=== PATIENT | male | born 1995 | race Caucasian/White ===

== ENCOUNTER 2023-05-28 14:02 | Emergency (ER) | payer SELFPAY ==
[2023-05-28 14:06] VITALS: BP 149/80; PULSE 93; RESP 18; TEMP 36.6; O2SAT 96
--- NOTE | 2023-05-28 14:07 | ED.GENADULT ---
HPI - General Adult General Chief complaint: Eye Problems Stated complaint: R eye irritation Time Seen by Provider: 05/28/23 14:03 History of Present Illness HPI narrative: Naeem is a previously healthy 28M that was using a outer diameter grinder tool without eye protection 1.5 weeks ago and thinks a shard might have flown in his eye. Since that time he has had waxing and waning irritation in the right eye and itching. Today he had some thick, yellow sticky drainage and it was red so he came in. There is no pain with eye movement, vision changes, or fevers. Related Data Allergies Allergy/AdvReac Type Severity Reaction Status Date / Time No Known Allergies Allergy Verified 05/28/23 14:03 Review of Systems Review of Systems: All systems reviewed & are unremarkable except as noted in HPI and below Exam Const: General: cooperative, healthy appearing, comfortable, no acute distress, well developed, alert, awake and Physically active Orientation/consciousness: oriented to person, oriented to place and oriented to time HENMT: Head: normal to inspection, normocephalic and atraumatic Ears: hearing grossly normal bilaterally and external ears normal Face/Nose/Sinus: Normal external nose present Eyes: General: appearance normal, both eyes and all related structures Periorbital: periorbital findings normal Sclera: sclerae normal Pupils: Equal, round and reactive pupils present Other: Right eye had conjunctival injection and purulent drainage. 20/20 vision with both eyes and with right eye alone. No pain with EOMI. Neck: Neck: normal visual inspection Chest: Chest palpation & inspection: normal inspection of the chest Resp: Effort & Inspection: normal respiratory effort, able to speak in complete sentences and no respiratory distress Cardio: Jugular venous distension: no JVD Skin: General skin exam: normal color and no rashes or lesions noted Neuro: General: oriented to person, oriented to place and oriented to time Cranial nerves: Yes Equal, round and reactive pupils present Extrem: General: normal to inspection Course Course Emergency Course: Performed fluorescein eye exam which showed no deficits or foreign body. Given antibiotic eye drops in the ED. Given he was using a outer diameter grinder tool and initially improved I suspect he had a corneal abrasor that progressed to conjunctivitis. He was discharged with a script for antibiotic eye drops and instructed to call [facility] for f/u. Discharge Plan Discharge Clinical Impression: Conjunctivitis Patient Disposition: Home, Self-Care Condition: Stable Instructions: Conjunctivitis (ED) Prescriptions: New polymyxin B sulf-trimethoprim 10,000 unit- 1 mg/mL drops 1 drp RIGHT EYE Q3H 5 Days Qty: 10 0RF Rx Instructions: while awake; do not exceed 6 doses in 24 hours Follow-up/Referrals: UNKNOWN,DOCTOR [Primary Care Provider] -
[2023-05-28] MEDS: TETRACAINE HCL 0.5% OPHTH SOLN 4 ML BTL 1 DROP LEFT EYE (14:09)
[2023-05-28] MEDS: FLUORESCEIN SOD 1 MG/STRIP EACH EYE (14:09)
[2023-05-28] MEDS: POLYMYXIN/TRIMETHOPRIM OPHTH 10 ML DROPS 1 DROP RIGHT EYE (14:36)
== END 2023-05-28 14:44 | disposition home or self-care (01) ==
LOC: CHSED 14:40
PROVIDERS: Emergency Provider Family Medicine
DX: H10.9 Unspecified conjunctivitis (principal)
CPT/HCPCS: 99283; A9270

== ENCOUNTER 2023-06-26 03:04 | Emergency (ER) | payer OTHER, SELFPAY ==
--- NOTE | ~2023-06-26 | CT_ITS ---
Noncontrast CT scan of the cervical spine Technique: Multiple contiguous axial [address] images of the cervical spine were obtained and rec onstructed in 2D sagittal and coronal planes on the acquisition scanner. Dose reduction technique was used on this scan by utilizing automated exposure control, adjustment of the mA and/or kV according to patient size. The dose-length product (DLP) was 534.87 mGy-cm. Clinical History: Pain Findings: No fractures or dislocations. Unremarkable visualized bony structures. The intervertebral disc spaces are preserved. No prevertebral soft tissue swelling. Impression: No fracture or subluxation of the cervical spine. Reviewed, dictated and finalized at location . Impression: No fracture or subluxation of the cervical spine.
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
[2023-06-26 03:06] VITALS: BP 139/92; PULSE 100; RESP 18; TEMP 36.8; O2SAT 98
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
[2023-06-26] MEDS: MORPHINE SULFATE (*CRX) 4 MG/ML INJ IV PUSH (03:21)
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
[2023-06-26 04:03] LABS: Hematocrit 46.4 % (40.0-54.0); Mean Corpuscular HGB Conc 34.5 g/dL (32-36); Mean Corpuscular Hemoglobin 32.1 pg (27.0-31.0); Mean Platelet Volume 10.2 fl (8.7-11.0); Platelet Count Result 255 K/mm3 (150-420); Red Blood Count 4.99 M/mm3 (4.70-6.10); Red Cell Distribution Width 12.2 % (11.6-14.4); White Blood Count 7.6 K/mm3 (4.8-10.8)
[2023-06-26] MEDS: MORPHINE SULFATE (*CRX) 2 MG/ML INJ IV PUSH (04:05)
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
[2023-06-26 04:14] LABS: Band Neutrophils Percent 0 % (0-6); Basophils Absolute Manual 0.07 K/mm3 (0-0.1); Basophils Percent Manual 1 % (0-1); Eosinophils Percent Manual 0 % (1-6); Lymphocytes Absolute Manual 2.05 K/mm3 (1.1-4.5); Lymphocytes Percent Manual 27 % (18-44); Monocytes Absolute Manual 0.45 K/mm3 (0.1-0.90); Monocytes Percent Manual 6 % (3-9); Neutrophils Absolute Manual 5.01 K/mm3 (1.3-6.7); Neutrophils Percent Manual 66 % (46-73); Platelet Estimate Adequate (Adequate)
[2023-06-26 04:23] LABS: Alanine Aminotransferase 73 U/L (16-63); Albumin Level 3.6 g/dL (3.4-5.0); Alkaline Phosphatase 94 U/L (46-116); Anion Gap 9 mmol/L (4-12); Aspartate Amino Transferase 38 U/L (15-37); Bilirubin,Total 0.6 mg/dL (0.00-1.00); Blood Urea Nitrogen 13 mg/dL (7-18); Calcium 8.3 mg/dL (8.5-10.1); Carbon Dioxide 28 mmol/L (21-32); Chloride 98 mmol/L (98-108); Estimated CRCL calculation 80 ml/min; Estimated Glomerular Filt Rate > 60; Glucose 101 mg/dL (70-99); Lipase 22 U/L (16-77); Osmolality Calculated 280 mOsm/kg (285-295); Potassium 4.5 mmol/L (3.5-5.1); Sodium 135 mmol/L (136-145); Total Protein 7.1 g/dL (6.4-8.2)
[2023-06-26 04:24] LABS: Troponin I < 4.0 ng/L (0.00-60.4)
[2023-06-26 04:55] VITALS: BP 145/94; PULSE 93; RESP 21; O2SAT 100
[2023-06-26 05:25] LABS: Add Urine Microscopic? NO; Appearance Urine Clear (Clear); Bilirubin Urine Negative (Negative); Blood Urine Negative (Negative); Color Urine Yellow (Yellow); Glucose Urine UA Negative (Negative); Ketones Urine Negative (Negative); Leukocyte Esterase Ur Negative LEU/UL (Negative); Nitrate Urine Negative (Negative); Protein Urine Negative (Negative); Specific Grav Ur <= 1.005 (1.010-1.020); Urobilinogen Urine 0.2 mg/dL (0.2-1.0)
[2023-06-26 05:32] VITALS: BP 136/98; PULSE 85; RESP 20; TEMP 36.7; O2SAT 99
== END 2023-06-26 05:39 | disposition home or self-care (01) ==
PROVIDERS: Emergency Provider Family Medicine
DX: M54.2 Cervicalgia (principal); V49.9XXA Car occupant (driver) (passenger) injured in unspecified traffic accident, initial encounter; W22.11XA Striking against or struck by driver side automobile airbag, initial encounter; M79.652 Pain in left thigh; R10.9 Unspecified abdominal pain
CPT/HCPCS: 36415; 70450; 71260; 72125; 73700; 74177; 80053; 81003; 83690; 84484; 85025; 96374; 96376; 99284; J2270; Q9967

== ENCOUNTER 2024-02-19 16:24 | Emergency (ER) | payer SELFPAY ==
[2024-02-19 16:24] VITALS: BP 144/113; PULSE 106; RESP 18; TEMP 37.3; O2SAT 100
[2024-02-19] MEDS: DACRIOSE EYE IRRIGATION 118 ML BOTTLE 50 ML EACH EYE (16:36)
[2024-02-19] MEDS: TETRACAINE HCL 0.5% OPHTH SOLN 4 ML BTL 1 DROP EACH EYE (16:36)
[2024-02-19] MEDS: FLUORESCEIN SOD 1 MG/STRIP EACH EYE (16:36)
--- NOTE | 2024-02-19 17:08 | ED_ITS ---
HPI - Eye Problem General Chief complaint: Eye Problems Stated complaint: foreign body to eye Time Seen by Provider: 02/19/24 16:30 Source: patient Mode of arrival: ambulatory Limitations: no limitations History of Present Illness HPI Narrative: Patient is a 28-year-old male with a significant past medical history that presents today for an eye injury. Patient was sought ring and not using eye protection and a piece of metal went into his right eye. There is a small hole with a piece of metal stuck in his right eye. His pain is a 10 10. He said it is with her and what they say finally came into the emergency department. He tried to use lots of water and his home and it did not help. chief complaint: eye pain and eye injury Onset (ago): hour(s) Onset description: sudden Duration: constant Location: right eye Eye Symptoms: burning and pain Place: home Mechanism: direct trauma and occurred while hammering/grinding Severity: moderate Severity scale (1-10): 10 If Pain, Quality: sharp and burning Associated symptoms: none Treatments Prior to Arrival: irrigated eye Related Data Allergies Allergy/AdvReac Type Severity Reaction Status Date / Time No Known Allergies Allergy Verified 02/19/24 16:35 Review of Systems Review of Systems: All systems reviewed & are unremarkable except as noted in HPI and below Constitutional: Constitutional: Reports as per HPI Eyes: Eyes: Reports as per HPI Comments: eye injury, foriegn body in eye ENT: Reports system reviewed and no additional complaints, except as documented Cardiovascular: Cardiovascular: Reports no additional cardiovascular complaints Respiratory: Respiratory: Reports no additional respiratory complaints Gastrointestinal: Gastrointestinal: Reports no additional gastrointestinal complaints Genitourinary: Genitourinary: Reports no additional male genitourinary complaints Musculoskeletal: Musculoskeletal: Reports no additional musculoskeletal complaints Integumentary/Breasts: Skin/Breast: Reports system reviewed and no additional complaints, except as docu Neurologic: Reports system reviewed and no additional complaints, except as documented Psychiatric: Psychiatric: Reports no additional psychiatric complaints Endocrine: Endocrine: Reports no additional endocrine complaints Hematologic/Lymphatic: Hematologic/Lymphatic: Reports no additional hematologic/lymphatic complaints Allergic/Immunologic: Allergic/Immunologic: Reports no additional allergic/immunologic complaints Exam Const: General: healthy appearing Nutritional Appearance: well nourished Orientation/consciousness: patient oriented x3 Limitations: no limitations HENMT: Head: normal to inspection Ears: external ears normal Face/Nose/Sinus: Normal external nose present Face and sinus: normal facial exam Mouth: Yes Normal oral and palatal mucosa present Teeth and gingiva: dentition normal Throat: posterior oropharynx normal Eyes: Pupils: Equal, round and reactive pupils present EOM: EOMs intact bilaterally Direct Ophthalmoscopy: no photophobia Other: Small .1mm hole in sclera with foriegn object in eye Neck: Neck: normal visual inspection Chest: Chest palpation & inspection: normal inspection of the chest Resp: Effort & Inspection: normal respiratory effort Auscultation: clear to auscultation bilaterally Cardio: Rate: regular rate Rhythm: regular rhythm GI: Auscultation: normal bowel sounds Back/Spine/Pelvis: Back: no CVA tenderness Skin: General skin exam: normal color Rashes: no rashes Wounds: no wounds Neuro: General: patient oriented x3 Cranial nerves: Yes Nystagmus not present Speech: normal speech Gait exam (Neuro): Normal gait present Extrem: General: normal to inspection Psych: Mental Status: mental status grossly normal Affect: normal affect Attitude: cooperative Course Vital Signs Vital signs: Vital Signs Temperature 99.2 F 02/19/24 16:24 Pulse Rate 106 H 02/19/24 16:24 Respiratory Rate 18 02/19/24 16:24 Blood Pressure 144/113 H 02/19/24 16:24 Pulse Oximetry 100 02/19/24 16:24 Oxygen Delivery Room Air 02/19/24 16:24 Temperature 99.2 F 02/19/24 16:24 Pulse Rate 106 H 02/19/24 16:24 Respiratory Rate 18 02/19/24 16:24 Blood Pressure 144/113 H 02/19/24 16:24 Pulse Oximetry 100 02/19/24 16:24 Oxygen Delivery Room Air 02/19/24 16:25 MDM - Eye Problem MDM Narrative Medical decision making narrative: Patient was grinding on metal without eye protection and is more so about when to his right eye. There is very small less than 0.1 mm piece of the Metal in his right eye. clip is seen in his thigh after done with the hat with tetracaine and he has black light lab and tools to remove the Foreign object for nausea was successfully removed he has just a very small hole in the score of the eye. This should not affect his vision and his vision for he said he can see good and has no blurriness and his eye feels much better. Differential Diagnosis Differential diagnosis: Likely other ( Scleral for objects) Medical Records Attestation: I reviewed the patient's medical records. Lab Data Attestation: I reviewed the patient's lab results. Discharge Plan Discharge Clinical Impression: Abrasion of sclera, Eye foreign body Patient Disposition: Home, Self-Care Condition: Stable Instructions: Eye Foreign Body (ED) Additional Instructions: painful atrium eyedrops as prescribed. If by Sunday it still feels like there is a foreign object in the high then see a sandblaster glass on Sunday. Patient Language: Serbian Prescriptions: New polymyxin B sulf-trimethoprim 10,000 unit- 1 mg/mL drops 1 drp RIGHT EYE QID 5 Days Qty: 10 0RF No Action hydrocodone-acetaminophen 5-325 mg tablet 1 tablet PO Q8H PRN (Reason: pain) Qty: 10 0RF polymyxin B sulf-trimethoprim 10,000 unit- 1 mg/mL drops 1 drp RIGHT EYE Q3H 5 Days Qty: 10 0RF Rx Instructions: while awake; do not exceed 6 doses in 24 hours Follow-up/Referrals: UNKNOWN,DOCTOR [Primary Care Provider] - Time of Disposition: 17:35
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
== END 2024-02-19 17:29 | disposition home or self-care (01) ==
LOC: CHSED 17:05
PROVIDERS: Emergency Provider Family Medicine
DX: T15.81XA Foreign body in other and multiple parts of external eye, right eye, initial encounter (principal); W44.E0XA Non-magnetic metal object unspecified, entering into or through a natural orifice, initial encounter
CPT/HCPCS: 99283; A9270